=== PATIENT | male | born 1950 | race Caucasian/White ===

== ENCOUNTER 2020-12-04 19:00 | Inpatient (IN) | payer OTHER ==
[~2020-12-04] VITALS: Ht 188 cm; Wt 90.9 kg
[~2020-12-04 19:00] MED LIST: ADULT LOW DOSE81 MG PO; AMLODIPINE BESYL5 MG PO; CARDURA2 MG PO; COLACE100 MG PO; DAILY GARLIC O400 MG PO; DIOVAN320 MG PO; HYDROCODON-ACE1 EAC5 PO; IBUPROFEN 800800 M1 PO; MULTIVITAMINS PO; NORVASC10 MG PO; POTASSIUM20 PO; SIMVASTATIN40 MG PO; TOPROL XL100 MG PO
[2020-12-04 19:01] VITALS: BP 104/62
[2020-12-04 20:15] LABS: ABSOLUTE NEUTROPHILS 3.6 thou/uL (1.4-8.2); BASOPHILS 0.7 % (0.0-2.0); EOSINOPHILS 3.3 % (0.0-3.0); HEMATOCRIT 32.4 % (42.0-52.0); HEMOGLOBIN 11.9 gm/dL (14.0-18.0); LYMPHOCYTES 14.7 % (24.0-44.0); MCH 31.3 pg (26.0-34.0); MCHC 36.6 g/dL (28.0-37.0); MCV 85.4 fL (80.0-100.0); MONOCYTES 7.6 % (1.0-8.0); PLATELET COUNT 198 thou/uL (150-400); POLYS 73.7 % (36.0-66.0); RBC 3.79 mil/uL (4.50-6.00); RDW 12.7 % (10.5-14.5); WBC 4.9 thou/uL (4.0-11.0)
[2020-12-04 20:24] LABS: CALCIUM 8.6 mg/dL (8.5-10.1); CREATININE 2.2 mg/dL (0.7-1.3); POTASSIUM 3.2 mmol/L (3.5-5.1)
[2020-12-04 20:33] LABS: ALBUMIN 3.5 g/dL (3.4-5.0); TOTAL BILIRUBIN 0.5 mg/dL (0.2-1.0); TOTAL PROTEIN 6.3 g/dL (6.4-8.2)
[2020-12-05 06:26] LABS: HEMATOCRIT 36.9 % (42.0-52.0); HEMOGLOBIN 13.2 gm/dL (14.0-18.0); MCH 30.7 pg (26.0-34.0); MCHC 35.9 g/dL (28.0-37.0); MCV 85.4 fL (80.0-100.0); RBC 4.32 mil/uL (4.50-6.00); WBC 5.5 thou/uL (4.0-11.0)
[2020-12-05 06:45] LABS: ANION GAP 10 mmol/L (7-16); BUN 25 mg/dL (7-18); CALCIUM 8.6 mg/dL (8.5-10.1); CHLORIDE 104 mmol/L (98-107); CO2 30 mmol/L (21-32); CREATININE 1.8 mg/dL (0.7-1.3); GLUCOSE 258 mg/dL (74-106); POTASSIUM 3.1 mmol/L (3.5-5.1); SODIUM 144 mmol/L (136-145)
--- NOTE | 2020-12-05 06:51 | EKG ---
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1950 Requested By: Brandy Ceballos Order Number: [id number] MD: Wojciech Suarez Measurements Intervals [place] Rate: 79 P: 27 [place]: 175 QRS: -27 QRSD: 106 T: 90 QT: 407 QTc: 467 Interpretive Statements Sinus rhythm Probable left atrial enlargement Inferior infarct, old Baseline wander in lead(s) V1 Compared to ECG 04/08/2014 10:45:26 Poor R-wave progression no longer present Myocardial infarct finding still present Electronically Signed On 12-05-2020 6:50:54 CDT by Wojciech Suarez [email or web address] <ELECTRONICALLY SIGNED> By: Wojciech Suarez MD, FAC 12/05/20 0650 1903 1903 Wojciech Suarez MD, [facility] /EPI
[2020-12-05 07:01] LABS: CHOLESTEROL 136 mg/dL (<200); HDL CHOLESTEROL 38 mg/dL (>40); LDL CHOLESTEROL 54 mg/dL (<100); TC:HDL 3.6 Ratio (Not establshd); TRIGLYCERIDE 223 mg/dL (<150); VLDL 45 mg/dL (<40)
[2020-12-05 07:04] LABS: SERUM ASSESSMENT Clear
[2020-12-05 07:52] VITALS: BP 191/89
--- NOTE | 2020-12-05 12:25 | CATHLAB ---
[facility] [place] [address] INVASIVE PROCEDURE REPORT Name: MIHIR MILLER Room #: 150-6 ADM IN M.R.#: [id number] Admission: 12/04/20 Attend Phys: Carley Vallecillo MD Discharge: Date of : 50 Report #: [id number] THIS REPORT FOR: cc: David Berry MD, Logan F. MD Lundgren, Craig H. 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 The Right Groin^ was infiltrated with 1% Lidocaine subcutaneous anesthesia. A 6FR MULTIPACK W/145 PIG #[id number] sheath was inserted into the RFA^. Coronary angiography was performed using coronary diagnostic catheters. The right coronary system was accessed and visualized with a JR4 catheter. The left coronary system was accessed and visualized with a JL4 catheter. The left ventricle was accessed and visualized with a ANGLED PIGTAIL catheter. Left ventriculogram was performed in 30 degree projection. Closure device was deployed with a Fr MYNX CONTROL 6F/7F L#[id number]. The patient tolerated the procedure well and there were no complications associated with the procedure. There was no hematoma. Intraoperative Conscious Sedation Sedation start time: 8:12 Case end Time: 10:16 Fentanyl 175 mcg Versed 2.[address] [address] INVASIVE PROCEDURE REPORT Name: MHIIR MILLER Jarocho Room #: [address] [place] [address] [place] [facility]#: [id number] Admission: 12/04/20 Attend Phys: Carley Vallecillo MD Discharge: Date of : 50 Report #: [id number] Fluoro Time: 30.30 minutes Dose: DAP 56793.60 cGycm2 6875 mGy Contrast Type and Amount: Visipaque 465 ml Coronary Angiography The patient's coronary anatomy is left dominant. Diagnostic Cath Left Main Mild left main plaquing LAD Occluded LAD near its origin. Widely patent left internal mammary to the LAD. The mammary was normal throughout its course with an excellent distal anastomotic site. The LAD itself was relatively small calibered (2.0mm) and diffusely diseased but free of high-grade stenoses. Circumflex Occluded distal circumflex and its marginal branches High-grade 95% mid circumflex stenosis before its distal occlusion OM1 Patent vein graft with a proximal anastomosis to a first diagonal branch then a jump sequence to a distal marginal branch. At the first anastomotic site there was a severe 80% stenosis. This was followed by a 99% stenosis in the jump sequence between the diagonal and marginal vessels. All anastomotic sites were widely patent. There was moderate disease in the distal limb of this bifurcating marginal branch. Right Coronary The right coronary was occluded at its origin There was a widely patent vein graft to the distal right coronary. Just beyond the proximal aortic anastomotic site was an 85% stenosis. The anastomosis to the posterior descending was patent although there was high-grade disease in a thready PDA vessel. Posterior lateral branch anastomosis was widely patent with good runoff into a moderate-sized vessel. Left Ventriculography The left ventricle is normal in size with normal contractility. The left ventricular ejection fraction is estimated to be 60-65%. Left ventricular wall motion abnormalities are not present. There is 1+ mitral insufficiency. Hemodynamics The aortic pressure is 208/86 mmHg with a mean of 132 mmHg. The left ventricular pressure is 198/0 mmHg with a mean of mmHg. The left [facility] [address] [place] [address] INVASIVE PROCEDURE REPORT Name: PAULMIHIR W Room #: 150-6 [facility] [place] ..#: [id number] Admission: 12/04/20 Attend Phys: Carley Vallecillo MD Discharge: Date of : 50 Report #: [id number] ventricular end diastolic pressure is 9 mmHg. PCI Technique Lesion Anticoagulation was achieved with Heparin, Integrilin. Patient was preloaded with Plavix. Percutaneous coronary intervention was performed on the sequential vein graft from diag to OM2. The lesion stenosis prior to intervention was 99% with BETTINA 3 flow. A LAUNCHER 6FR AR1 #[id number] Guide Catheter was used to engage the ostium. A Luge Wire .014 x 182CM #[id number] Interventional Guidewire was used to cross the lesion. BALLOON DILATION A Balloon catheter Euphora RX 3.0 x 15 #[id number] was inserted and inflated up to 14atm for 21seconds. Additional Inflation: 12atm for 22seconds. Additional Inflation: 17atm for 32seconds. This is a very complex intervention requiring multiple guide exchanges, multiple wire exchanges. The vein graft segment between the diagonal and marginal branch anastomoses was initially ballooned although a stent would not traverse into that segment in part due to moderately high-grade disease in the vein graft near the diagonal branch anastomosis. This was subsequently ballooned with a 3.5 mm balloon and then stented. At the site of original high-grade stenosis, a 4.0 mm x 18 stent was placed, also in sequence to the more proximal stents in the same graft.. There was a small dissection at the distal margin of the stent, stented with a 3.5 x 12 mm Resolute stent STENT DEPLOYMENT A drug-eluting stent RESOLUTE ROSALIA RX 4.0 X 18 #[id number] was inserted and inflated up to 12atm for 16seconds. A drug-eluting stent RESOLUTE ROSALIA RX 3.5mm x 12mm was inserted and inflated up to 16 marcell for 15 seconds. A drug-eluting stent RESOLUTE ROSALIA RX 3.5mm x 8mm was inserted and inflated up to 18 marcell for 20 seconds, in sequence. A drug-eluting stent RESOLUTE ROSALIA 3.5mm x 12mm was inserted and inflated up to 12 marcell for 15 seconds. The main body of the vein graft was stented with a 4.0 x 18 mm stent although there appeared to be an intimal disruption or dissection at the distal margin of the stent, this was stented with a 3.5 x 12 mm resolute stent with an overall good angiographic result. All stents were postdilated. POST STENT DEPLOYMENT BALLOON DILATION A Balloon catheter was inserted and inflated up to 12atm for 17seconds. Additional Inflation: 12atm for 16seconds. Additional Inflation: 10atm for 17seconds. Additional Inflation: 8 marcell for 21 seconds. Additional Inflation: 12 marcell for 14 seconds. Final angiography reveals 0 % stenosis with BETTINA 3 flow. [facility] [place] [address] INVASIVE PROCEDURE REPORT Name: PAULMIHIR W Room #: 150-6 [facility] IN ..#: [id number] Admission: 12/04/20 Attend Phys: Carley Vallecillo MD Discharge: Date of : 50 Report #: [id number] PCI Technique Lesion 2 Percutaneous Coronary Intervention was performed on the Unspecified. Conclusion 1. Normal global and regional left ventricular systolic function. EF 65%. 2. Graft dependent circulation. Occluded LAD, circumflex, and right coronary arteries 3. Patent left internal mammary to the LAD 4. Occluded vein graft to the right coronary artery. 5. High-grade sequential disease in the sequential vein graft to the first diagonal branch with jump sequence to OM 2, treated with sequential SVG Resolute stents: 3.5 x 15, 3.5 x 8, 4.0 x 18, 3.5 x 12. All post dilated with non-compliant balloon. 6. Severe stenosis in SVG to RCA with planned laser atherectomy and stenting in 4-6wks. Recommendations Daily ASA with Plavix for at least one year Cardiac Rehabilitation Referral <ELECTRONICALLY SIGNED> By: Rex Porter MD, [facility] 12/05/20 1224 1224 1224 Rex Porter MD, FACC /INF
[2020-12-05 15:05] VITALS: BP 145/83
--- NOTE | 2020-12-05 16:49 | HC ---
[facility] [place] [address] [address] CONSULTATION Name: MIHIR MILLER Room #: 210-P ADM IN M.R.#: [id number] Admission: 12/04/20 Attend Phys: Carley Vallecillo MD Discharge: Date of : 50 Report #: [id number] THIS REPORT FOR: cc: David Berry MD, Logan F. MD Lundgren, Craig H. MD [facility] ~ DATE OF SERVICE: 12/05/2020 CHIEF COMPLAINT: Chest pain. HISTORY OF PRESENT ILLNESS: The patient is a 70-year-old gentleman with history of longstanding diabetes, hypertension and dyslipidemia. He has a history of prior bypass surgery with a left internal mammary to the LAD, vein graft to the posterior descending, and a sequential vein graft to the diagonal and second marginal branches. His bypass surgery was in 2008. Now presents with one to two weeks of midsternal chest pain. He thought initially that this was indigestion, although he had a more severe episode after eating dinner last night, unrelieved by Tums. He presented to the Emergency Department where his highly sensitive troponin was 171 with subsequent elevation to 544 nanograms per liter. He does have improved, but ongoing discomfort. His prebypass pain was pain in his jaw. He has had none of this. No heart failure symptoms including orthopnea, paroxysmal nocturnal dyspnea, or lower extremity edema. No history of near syncope or syncope. ALLERGIES: HE IS ALLERGIC TO CODEINE AND SHELLFISH. MEDICATIONS: His medicines include amlodipine 10 mg daily, aspirin 81 mg daily, clonidine 0.2 mg twice daily, doxazosin 4 mg daily, metformin 1000 mg twice daily, Toprol-XL 100 mg daily, potassium 10 mEq twice daily, Zocor 20 mg daily, lisinopril 20 mg daily. PAST MEDICAL HISTORY: Medical records have been reviewed and include a history of cervical spine surgery, coronary artery bypass grafting, hemorrhoid surgery, tonsillectomy, vasectomy, diabetes, hypertension and dyslipidemia. SOCIAL HISTORY: He is a former smoker. . FAMILY HISTORY: Unremarkable for premature coronary disease. REVIEW OF SYSTEMS: All systems negative except as that noted above. PHYSICAL EXAMINATION: GENERAL: A pleasant gentleman with ongoing chest discomfort. VITAL SIGNS: Blood pressure is 167/78, heart rate is 69 and regular. He is afebrile, 6 feet 1 inches tall, 195 pounds. HEENT: Neither xanthelasma, subcutaneous xanthomata, oral mucosa, digital [facility] [address] [place] [address] CONSULTATION Name: MIHIR MILLER Room #: 210-P [facility] IN [facility]#: [id number] Admission: 12/04/20 Attend Phys: Carley Vallecillo MD Discharge: Date of : 50 Report #: [id number] cyanosis or kyphoscoliosis present. CHEST: Clear to auscultation and percussion. CARDIAC: Regular rate and rhythm with normal S1, S2. No murmurs or rubs. ABDOMEN: Soft and nontender. EXTREMITIES: Without edema. Radial pulses are 2+. NEUROLOGIC: He is alert with a nonfocal exam. LABORATORY DATA: Sodium 144, potassium 3.1, creatinine 1.8, glucose 258. Hemoglobin 13.2, platelet count 194. EKG, sinus rhythm with voltage criteria for LVH, nonspecific ST segment abnormality. Chest x-ray is normal. IMPRESSION: 1. Non-Q-wave myocardial infarction. 2. Coronary artery disease with remote bypass. 3. Hypertension. 4. Chronic kidney disease. 5. Longstanding diabetes. 6. Prior bypass. RECOMMENDATIONS: 1. Therapy with aspirin, heparin and nitrates. 2. Coronary angiography. The angiographic procedure was discussed in detail including its associated risks. After a thorough discussion of the procedure, its risks and alternatives and after answering his questions, he is agreeable to proceeding. <ELECTRONICALLY SIGNED> By: Rex Porter MD, [facility] 12/05/20 1649 0655 0721 Rex Porter MD, FACC /nt
[2020-12-05 19:16] VITALS: BP 141/85
[2020-12-05 23:06] LABS: GLYCOHEMOGLOBIN (HGB A1C) 10.8 % (4.8-5.6)
[2020-12-05 23:51] VITALS: BP 151/81
[2020-12-06 04:48] LABS: ALBUMIN 3.4 g/dL (3.4-5.0); CALCIUM 8.3 mg/dL (8.5-10.1); CREATININE 1.6 mg/dL (0.7-1.3); POTASSIUM 3.3 mmol/L (3.5-5.1); TOTAL BILIRUBIN 0.7 mg/dL (0.2-1.0)
[2020-12-06 05:04] LABS: HEMATOCRIT 31.9 % (42.0-52.0); HEMOGLOBIN 11.5 gm/dL (14.0-18.0); MCH 31.2 pg (26.0-34.0); MCHC 36.1 g/dL (28.0-37.0); MCV 86.5 fL (80.0-100.0); RBC 3.69 mil/uL (4.50-6.00); RDW 12.8 % (10.5-14.5); WBC 6.7 thou/uL (4.0-11.0)
[2020-12-06 05:21] VITALS: BP 150/42
[2020-12-06 07:40] VITALS: BP 153/84
[2020-12-06] MEDS ORDERED: CLOPIDOGREL75 MG PO (08:51)
[2020-12-06 11:30] VITALS: BP 126/73
--- NOTE | 2020-12-06 12:03 | EKG ---
[address] [facility] [place] [address] ELECTROCARDIOGRAM REPORT Name: MIHIR MILLER Room #: 210-P ADM IN M.R.#: [id number] Admission: 12/04/20 Attend Phys: Carley Vallecillo MD Discharge: Date of : 50 Report #: [id number] 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 : 1950 Requested By: Rex Porter Order Number: [id number] MD: Wojciech Suarez Measurements Intervals [place] Rate: 75 P: 18 VT: 172 QRS: -41 QRSD: 100 T: 67 QT: 415 QTc: 464 Interpretive Statements Sinus rhythm Probable left atrial enlargement Abnormal R-wave progression, late transition Inferior infarct, old Compared to ECG 12/04/2020 19:03:58 No significant changes Electronically Signed On 12-06-2020 12:03:46 CDT by Wojciech Suarez [email or web address] <ELECTRONICALLY SIGNED> By: Wojciech Suarez MD, [facility] 12/06/20 1203 0910 0910 Wojciech Suarez MD, [facility] /EPI
[2020-12-06] MEDS ORDERED: MAG DELAY64 M1 PO (12:06)
[2020-12-06] MEDS ORDERED: PEPCID20 MG PO (12:06)
[2020-12-06 12:27] VITALS: BP 126/73
[2020-12-06] MEDS ORDERED: CLONIDINE HCL0.1 MG PO (13:35)
== END 2020-12-06 13:27 | disposition home or self-care (01) | DRG 246 ==
LOC: ER 19:00 → EROBS 21:51 → 2N 21:51 → EROBS 12-05 07:19 → TBA 12-05 07:57 → 2N 12-05 14:56
PROVIDERS: Internal Medicine; Nurse Practitioner Family; Student in an Organized Health Care Education/Training Program; ADMIT Internal Medicine; ATTEND Internal Medicine
PROC: B213YZZ Fluoroscopy of Multiple Coronary Artery Bypass Grafts using Other Contrast (ICD-10-PCS; principal; 2020-12-05)
PROC: B215YZZ Fluoroscopy of Left Heart using Other Contrast (ICD-10-PCS; principal; 2020-12-05)
PROC: 4A023N7 Measurement of Cardiac Sampling and Pressure, Left Heart, Percutaneous Approach (ICD-10-PCS; principal; 2020-12-05)
PROC: B211YZZ Fluoroscopy of Multiple Coronary Arteries using Other Contrast (ICD-10-PCS; principal; 2020-12-05)
PROC: 027137Z Dilation of Coronary Artery, Two Arteries with Four or More Drug-eluting Intraluminal Devices, Percutaneous Approach (ICD-10-PCS; principal; 2020-12-05)
PROC: B218YZZ Fluoroscopy of Left Internal Mammary Bypass Graft using Other Contrast (ICD-10-PCS; principal; 2020-12-05)
DX: I21.4 Non-ST elevation (NSTEMI) myocardial infarction (principal); N17.9 Acute kidney failure, unspecified; I25.10 Atherosclerotic heart disease of native coronary artery without angina pectoris; E78.5 Hyperlipidemia, unspecified; I12.9 Hypertensive chronic kidney disease with stage 1 through stage 4 chronic kidney disease, or unspecified chronic kidney disease; N18.9 Chronic kidney disease, unspecified; E11.22 Type 2 diabetes mellitus with diabetic chronic kidney disease; E83.42 Hypomagnesemia; E87.6 Hypokalemia; Z79.899 Other long term (current) drug therapy; Z95.1 Presence of aortocoronary bypass graft; Z88.6 Allergy status to analgesic agent; Z91.013 Allergy to seafood; Z98.52 Vasectomy status; Z87.891 Personal history of nicotine dependence
CPT/HCPCS: 10081

== ENCOUNTER → 2021-01-06 | Outpatient (CLI) | payer OTHER ==
[~2021-01-06] MED LIST changes: +CLONIDINE HCL0.1 MG PO; +CLOPIDOGREL75 MG PO; +MAG DELAY64 M1 PO; +PEPCID20 MG PO
== END ==
LOC: SJCVC 13:46
PROVIDERS: ATTEND Internal Medicine
DX: I25.10 Atherosclerotic heart disease of native coronary artery without angina pectoris (principal); I10 Essential (primary) hypertension; I65.23 Occlusion and stenosis of bilateral carotid arteries; E78.5 Hyperlipidemia, unspecified; E11.9 Type 2 diabetes mellitus without complications; Z95.1 Presence of aortocoronary bypass graft; Z87.891 Personal history of nicotine dependence; Z88.5 Allergy status to narcotic agent; Z79.82 Long term (current) use of aspirin; Z79.84 Long term (current) use of oral hypoglycemic drugs; Z79.899 Other long term (current) drug therapy

== ENCOUNTER → 2021-01-14 | Outpatient (CLI) | payer OTHER | LOC: SJCVC 09:29 | PROVIDERS: ATTEND Internal Medicine | DX: E11.9 Type 2 diabetes mellitus without complications (principal); I10 Essential (primary) hypertension; E78.5 Hyperlipidemia, unspecified; Z95.1 Presence of aortocoronary bypass graft ==

== ENCOUNTER → 2021-01-24 | Outpatient (CLI) | payer OTHER | LOC: SJCVCIMAG 07:56 | PROVIDERS: ATTEND Internal Medicine | DX: I70.1 Atherosclerosis of renal artery (principal); I10 Essential (primary) hypertension ==

== ENCOUNTER → 2021-01-29 | Outpatient (CLI) | payer OTHER | LOC: SJCVC 10:20 | PROVIDERS: ATTEND Nuclear Medicine Nuclear Cardiology | DX: I70.1 Atherosclerosis of renal artery (principal); I12.9 Hypertensive chronic kidney disease with stage 1 through stage 4 chronic kidney disease, or unspecified chronic kidney disease; E11.22 Type 2 diabetes mellitus with diabetic chronic kidney disease; N18.9 Chronic kidney disease, unspecified; I25.10 Atherosclerotic heart disease of native coronary artery without angina pectoris; I77.9 Disorder of arteries and arterioles, unspecified; E78.00 Pure hypercholesterolemia, unspecified; Z95.1 Presence of aortocoronary bypass graft; Z87.891 Personal history of nicotine dependence; Z88.5 Allergy status to narcotic agent; Z91.013 Allergy to seafood; Z79.82 Long term (current) use of aspirin; Z79.899 Other long term (current) drug therapy ==

== ENCOUNTER → 2021-02-06 | Outpatient (CLI) | payer OTHER ==
[~2021-02-06] VITALS: Ht 185.4 cm; Wt 87.5 kg
[2021-02-06 07:24] VITALS: BP 140/64
[2021-02-06 08:41] LABS: HEMATOCRIT 33.5 % (42.0-52.0); HEMOGLOBIN 11.5 gm/dL (14.0-18.0); MCH 30.4 pg (26.0-34.0); MCHC 34.4 g/dL (28.0-37.0); MCV 88.4 fL (80.0-100.0); RBC 3.79 mil/uL (4.50-6.00); RDW 13.4 % (10.5-14.5); WBC 6.6 thou/uL (4.0-11.0)
[2021-02-06 08:58] LABS: CALCIUM 8.7 mg/dL (8.5-10.1); CREATININE 2.8 mg/dL (0.7-1.3); POTASSIUM 3.5 mmol/L (3.5-5.1)
== END | disposition home or self-care (01) ==
LOC: CATH 06:26
PROVIDERS: ATTEND Nuclear Medicine Nuclear Cardiology
DX: I70.1 Atherosclerosis of renal artery (principal); I15.0 Renovascular hypertension; I73.9 Peripheral vascular disease, unspecified; M79.604 Pain in right leg; M79.605 Pain in left leg; E11.22 Type 2 diabetes mellitus with diabetic chronic kidney disease; N18.9 Chronic kidney disease, unspecified; I25.10 Atherosclerotic heart disease of native coronary artery without angina pectoris; E78.5 Hyperlipidemia, unspecified; Z98.890 Other specified postprocedural states; Z79.899 Other long term (current) drug therapy; Z82.49 Family history of ischemic heart disease and other diseases of the circulatory system; Z95.1 Presence of aortocoronary bypass graft; Z88.8 Allergy status to other drugs, medicaments and biological substances; Z79.82 Long term (current) use of aspirin

== ENCOUNTER → 2021-02-20 | Outpatient (CLI) | payer OTHER | LOC: SJCVC 14:22 | PROVIDERS: ATTEND Internal Medicine | DX: I25.10 Atherosclerotic heart disease of native coronary artery without angina pectoris (principal); I77.9 Disorder of arteries and arterioles, unspecified; I70.1 Atherosclerosis of renal artery; I10 Essential (primary) hypertension; E11.9 Type 2 diabetes mellitus without complications; I95.1 Orthostatic hypotension; E78.00 Pure hypercholesterolemia, unspecified; Z95.1 Presence of aortocoronary bypass graft; Z87.891 Personal history of nicotine dependence; Z88.5 Allergy status to narcotic agent; Z91.013 Allergy to seafood; Z79.82 Long term (current) use of aspirin; Z79.899 Other long term (current) drug therapy; Z95.5 Presence of coronary angioplasty implant and graft ==

== ENCOUNTER → 2021-03-04 | Outpatient (CLI) | payer OTHER | LOC: SJCVC 11:05 | PROVIDERS: ATTEND Internal Medicine | DX: I25.10 Atherosclerotic heart disease of native coronary artery without angina pectoris (principal); I65.23 Occlusion and stenosis of bilateral carotid arteries; I70.1 Atherosclerosis of renal artery; I10 Essential (primary) hypertension; E11.9 Type 2 diabetes mellitus without complications; I95.1 Orthostatic hypotension; Z95.1 Presence of aortocoronary bypass graft; E78.00 Pure hypercholesterolemia, unspecified; Z79.82 Long term (current) use of aspirin; Z79.899 Other long term (current) drug therapy; Z87.891 Personal history of nicotine dependence; Z88.5 Allergy status to narcotic agent; Z91.013 Allergy to seafood ==